=== PATIENT | female | born 1945 | race Caucasian/White ===

== ENCOUNTER 2019-04-18 06:50 | Day surgery (SDC) | payer MEDICARE, OTHER ==
[~2019-04-18 06:50] MED LIST: ASPI81TA52 PO; BENA20TA4 PO; HYDR25TA6 PO; ISOS20TA3 PO; LEVO75TA5 PO; METF-849 PO; METO-335 PO; NPH,100V10 SC; SIMV40TA3 PO
[2019-04-18] MEDS ORDERED: DICLOFENAC 0.1% 2.5 ML OPH OPER SCH (07:30)
[2019-04-18] MEDS ORDERED: SOD CHLORIDE 0.9% 1,000 ML IV SCH (07:30)
[2019-04-18] MEDS ORDERED: CYCLOPENTOLATE/PHENYLEPH 2 ML OPH OPER SCH (07:30)
[2019-04-18] MEDS ORDERED: MOXIFLOXACIN 0.5% 3 ML OPH OPER SCH (07:30)
[2019-04-18] MEDS ORDERED: TROPICAMIDE 1% 15 ML OPH OPER SCH (07:30)
== END 2019-04-18 07:40 | disposition home or self-care (01) ==
LOC: SDS 06:50
PROVIDERS: ATTEND Ophthalmology
DX: H25.9 Unspecified age-related cataract (principal); Z53.21 Procedure and treatment not carried out due to patient leaving prior to being seen by health care provider

== ENCOUNTER 2019-04-25 05:19 | Day surgery (SDC) | payer MEDICARE, OTHER ==
[2019-04-25] VITALS (8 sets, daily range): BP systolic 119–157; BP diastolic 56–79; PULSE 54–61; RESP 14–20; Ht 142.2 cm; Wt 83.2 kg
[~2019-04-25] VITALS: Ht 142.2 cm; Wt 83.2 kg
[~2019-04-25 05:19] MED LIST changes: +CLOP75TA19 PO; +LOSA50TA14 PO; +NOVMIX SC; +SIMV40TA19 PO; -SIMV40TA3 PO
[2019-04-25] MEDS ORDERED: DICLOFENAC 0.1% 2.5 ML OPH RIGHT EYE SCH (06:00)
[2019-04-25] MEDS ORDERED: SOD CHLORIDE 0.9% 1,000 ML IV SCH (06:00)
[2019-04-25] MEDS ORDERED: TROPICAMIDE 1% 15 ML OPH RIGHT EYE SCH (06:00)
[2019-04-25] MEDS ORDERED: CYCLOPENTOLATE/PHENYLEPH 2 ML OPH RIGHT EYE SCH (06:00)
[2019-04-25] MEDS ORDERED: MOXIFLOXACIN 0.5% 3 ML OPH RIGHT EYE SCH (06:00)
[2019-04-25] MEDS ORDERED: LIDOCAINE 4% (MPF) 5 ML INJ ONE (07:14)
[2019-04-25] MEDS ORDERED: CEFAZOLIN 1 GM INJ ONE (07:14)
[2019-04-25] MEDS ORDERED: TETRACAINE 0.5% 4 ML OPH ONE (07:15)
[2019-04-25] MEDS ORDERED: CARBACHOL 0.01% 1.5 ML OPH INJ ONE (07:15)
[2019-04-25] MEDS ORDERED: MOXIFLOXACIN 0.5% 3 ML OPH ONE (07:15)
[2019-04-25] MEDS ORDERED: GENTAMICIN 80 MG INJ ONE (07:16)
[2019-04-25] MEDS ORDERED: DEXAMETHASONE 4 MG/ML 1 ML INJ ONE (07:16)
[2019-04-25] MEDS ORDERED: NA HYALURONATE/CHONDROITIN 0.5 ML SYG ONE (07:16)
[2019-04-25] MEDS ORDERED: EPINEPHrine 1 MG INJ ONE (07:16)
[2019-04-25] MEDS ORDERED: LIDOCAINE 1% (MPF) 10 ML INJ ONE (07:17)
[2019-04-25] MEDS ORDERED: hydrALAzine 20 MG INJ IV PRN (07:30)
[2019-04-25] MEDS ORDERED: ALBUTEROL 0.083% (NEB) 2.5 MG/3 ML AMP HHN PRN (07:30)
[2019-04-25] MEDS ORDERED: LABETALOL HCL 20MG INJ IV PRN (07:30)
[2019-04-25] MEDS ORDERED: ONDANSETRON 4 MG INJ IV PRN (07:30)
[2019-04-25] MEDS ORDERED: FENTAnyl 50 MCG/ML VIAL IV PRN (07:30)
[2019-04-25] MEDS ORDERED: DIPHENHYDRAMINE 50 MG INJ IV PRN (07:30)
[2019-04-25] MEDS ORDERED: ACETAMINOPHEN 500 MG TAB PO PRN (07:30)
[2019-04-25] MEDS ORDERED: OXYCODONE/ACETAMINOPHEN (5/325) TAB PO PRN (07:30)
[2019-04-25] MEDS ORDERED: ACETAMINOPHEN 325 MG TAB PO PRN (07:30)
[2019-04-25] MEDS ORDERED: PROPOFOL 20 ML ONE (07:36)
[2019-04-25] MEDS ORDERED: FENTAnyl 50 MCG/ML VIAL ONE (08:07)
== END 2019-04-25 09:38 | disposition home or self-care (01) ==
LOC: SDS 05:19
PROVIDERS: ATTEND Ophthalmology
DX: H25.11 Age-related nuclear cataract, right eye (principal); E11.9 Type 2 diabetes mellitus without complications; I10 Essential (primary) hypertension; I25.10 Atherosclerotic heart disease of native coronary artery without angina pectoris; I25.2 Old myocardial infarction; Z79.84 Long term (current) use of oral hypoglycemic drugs; Z79.4 Long term (current) use of insulin
CPT/HCPCS: 66984; 82962; J0171; J0690; J1100; J1580; J3010; V2632